=== PATIENT | female | born 1970 | race Caucasian/White ===

== ENCOUNTER → 2017-03-07 | Outpatient (CLI) | payer OTHER | END | disposition home or self-care (01) | LOC: KCIC MRI 14:08 | DX: M51.37 Other intervertebral disc degeneration, lumbosacral region (principal); M43.16 Spondylolisthesis, lumbar region; M47.897 Other spondylosis, lumbosacral region; R32 Unspecified urinary incontinence; R20.8 Other disturbances of skin sensation | CPT/HCPCS: 72148 ==

== ENCOUNTER → 2017-09-27 | Outpatient (CLI) | payer OTHER | END | disposition home or self-care (01) | LOC: US 16:24 | DX: M79.89 Other specified soft tissue disorders (principal) | CPT/HCPCS: 93970 ==